=== PATIENT | female | born 1975 | race Caucasian/White ===

== ENCOUNTER 2020-01-27 11:31 | Emergency (ER) | payer OTHER, SELFPAY ==
[~2020-01-27] VITALS: Ht 157.5 cm; Wt 61.2 kg
--- NOTE | 2020-01-27 11:45 | NUR ---
PT AMBULATED TO ER BED 09
[2020-01-27 11:49] VITALS: BP 147/87
--- NOTE | 2020-01-27 12:23 | NUR ---
PT REPORTED TO PROVIDER THAT SHE HAS TESTED POSITIVE FOR COVID-19. PT IN ISOLATION ROOM. COVID PRECAUTIONS IN PLACE.
[2020-01-27] MEDS: NACL 0.9% 1,000 ML IV ONE (12:28)
[2020-01-27] MEDS: DEXAMETHASONE 10 MG/ML VIAL IVP ONE (12:41)
[2020-01-27] MEDS: diphenhydrAMINE 50 MG/ML VIAL IVP ONE (12:41)
[2020-01-27] MEDS: FAMOTIDINE 20 MG TAB PO ONE (12:42)
--- NOTE | 2020-01-27 12:55 | NUR ---
44 Y/O FEMALE PRESENTS WITH RASH ON UPPER/LOWER BILAT EXTREMITIES SINCE YESTERDAY. PT DENIES EATING ANYTHING OUT OF THE ORDINARY, USING NEW CREAMS, OR STARTING NEW MEDICATION. PT DENIES ANY SOB, OR PAIN. PT STATES SHE IS COVID POSITIVE, RECEIVED HER RESULT X2 WEEKS AGO. STATES SHE HAS BEEN NAUSEOUS AND DIZZY FOR TWO WEEKS. RESP EVEN AND UNLABORED. SKIN IS INTACT. VSS. PMH: ANEMIA
[2020-01-27 14:13] VITALS: BP 147/87
--- NOTE | 2020-01-27 14:14 | NUR ---
Patient discharged with v/s stable. Written and verbal after care instructions given and explained. Patient alert, oriented and verbalized understanding of instructions. Ambulatory with steady gait. All questions addressed prior to discharge. ID band removed. Patient advised to follow up with PMD. Rx of BENADRYL, PREDNISONE, LORATIDINE given. Patient educated on indication of medication including possible reaction and side effects. Opportunity to ask questions provided and answered.
--- NOTE | 2020-01-31 07:54 | NUR ---
LATE ENTRY- NORMAL SALINE 0.9% BOLUS DISCONTINUED AT 1414.
== END 2020-01-27 14:14 | disposition home or self-care (01) ==
LOC: MED 11:31 → EEVIPCON 11:31 → MED 14:14
DX: R21 Rash and other nonspecific skin eruption (principal); E86.0 Dehydration; R42 Dizziness and giddiness; D64.9 Anemia, unspecified; Z20.828 Contact with and (suspected) exposure to other viral communicable diseases
CPT/HCPCS: 96361; 96374; 96375; 99284; J1100; J1200; J7030